=== PATIENT | male | born 1965 | race Caucasian/White ===

== ENCOUNTER 2018-01-10 14:15 | Inpatient (IN) | payer OTHER ==
--- NOTE | 2018-01-10 14:28 | CPEKG ---
Heart Rate: 69 RR Interval: 870 P-R Interval: 180 QRSD Interval: 90 QT Interval: 388 QTC Interval: 416 P [place]: 84 QRS [place]: 56 T Wave [place]: 39 EKG Severity - NORMAL ECG - EKG Impression: SINUS RHYTHM Electronically Signed By: Nicko Patterson 10-Jan-2018 16:02:02
[2018-01-10 14:43] LABS: PLATELET COUNT 289 10^3/uL (150-400)
--- NOTE | 2018-01-10 14:58 | EDPHY ---
H & P Stated Complaint: Chest and left arm pain Time Seen by Provider: 01/10/18 14:58 HPI/ROS: CHIEF COMPLAINT: Vague chest pain with left arm discomfort HISTORY OF PRESENT ILLNESS: The patient presents to the ED with a 1 day history of vague chest pain and left arm discomfort. The patient reports his symptoms began earlier today. Primary symptom was left arm pain. He reports that he had a dull ache in his bicep in forearm. He had some associated paresthesias in his left fingers. The patient did developed a few episodes of chest pain which were brief and improved with belching. The patient had similar symptoms 2 weeks ago and reportedly was seen at his primary care provider's office and had a negative troponin and unremarkable EKG. The patient is scheduled to see Dr. Montes De Oca from Cardiology on January 20. The patient reports that he does have a family history of heart disease and his father had a massive heart attack in his 60s. The patient denies any asymmetric calf pain or swelling. He denies any history of exertional chest pain or shortness of breath. REVIEW OF SYSTEMS: A comprehensive 10 point review of systems is otherwise negative aside from elements mentioned in the history of present illness. Source: Patient Exam Limitations: No limitations - Personal History Current Tetanus Diphtheria and Acellular Pertussis (TDAP): Yes Tetanus Vaccine Date: < 10 YEARS - Medical/Surgical History Hx Asthma: No Hx Chronic Respiratory Disease: No Hx Diabetes: No Hx Cardiac Disease: No Hx Renal Disease: No Hx Cirrhosis: No Hx Alcoholism: No Hx HIV/AIDS: No Hx Splenectomy or Spleen Trauma: No Other PMH: Hernia repair / shoulder repaiR, HTN - Social History Smoking Status: Never smoked - Physical Exam Exam: General Appearance: Alert, no distress Eyes: Pupils equal and round no pallor or injection ENT, Mouth: Mucous membranes moist Respiratory: There are no retractions, lungs are clear to auscultation Cardiovascular: Regular rate and rhythm Gastrointestinal: Abdomen is soft and nontender, no masses, bowel sounds normal Neurological: 5/5 strength all 4 extremities Skin: Warm and dry, no rashes Musculoskeletal: Neck is supple nontender Extremities: symmetrical, full range of motion Constitutional: Initial Vital Signs Temperature (C) 37.2 C 01/10/18 14:19 Heart Rate 82 01/10/18 14:19 Respiratory Rate 18 01/10/18 14:19 Blood Pressure 147/78 H 01/10/18 14:19 O2 Sat (%) 96 01/10/18 14:19 O2 Delivery Mode Room Air Allergies/Adverse Reactions: No Known Allergies Allergy (Verified 01/10/18 14:18) Home Medications: Medication Instructions Recorded Aspirin [Aspirin 325 mg (*)] 650 mg PO DAILY PRN 05/18/16 Lisinopril 01/10/18 Medical Decision Making - Diagnostics EKG Interpretation: EKG: Complete interpretation has been separately recorded in the [email or web address] archive. Summary impression: Sinus rhythm, rate 69 Imaging Results: Imaging Impressions Chest X-Ray 01/10/18 14:32 Impression: No acute findings in the chest. ED Course/Re-evaluation: The patient presents to the ED after an episode of vague chest discomfort which was nonexertional and improved with belching. The patient is also had some very nonspecific pain in his left arm. His symptoms have been present since 8 o 'clock this morning. Patient is currently asymptomatic in the emergency department. His EKG demonstrates no evidence of ischemia in the patient's troponin is normal. Additionally the patient's chest x-ray demonstrates no evidence of acute disease in the patient's D-dimer is negative which I feel adequately excludes pulmonary embolism. The patient is scheduled to see Cardiology for stress test in the next week. I have informed the patient that I see no objective evidence of ischemia at this point time. He does understand that we cannot fully exclude coronary artery disease. Based upon the patient's symptoms and HEART score I am comfortable with him being discharged to home and following up with Cardiology. He has been informed to return to the ED for any recurrent severe chest pain, the development of exertional symptoms or other concerns. Differential Diagnosis: Differential diagnosis considered includes acute coronary syndrome, pericarditis , esophageal spasm, myofascial strain, pulmonary embolism, aortic dissection - Data Points Laboratory Results: Laboratory Results 01/10/18 14:34 01/10/18 14:34 01/10/18 01/10/18 01/10/18 14:34 14:34 14:30 WBC 10.44 10^3/uL H 10^3/uL (3.80-9.50) RBC 5.13 10^6/uL 10^6/uL (4.40-6.38) Hgb 15.5 g/dL g/dL (13.7-17.5) Hct 42.4 % % (40.0-51.0) MCV 82.7 fL fL (81.5-99.8) MCH 30.2 pg pg (27.9-34.1) MCHC 36.6 g/dL g/dL (32.4-36.7) RDW 11.7 % % (11.5-15.2) Plt Count 289 10^3/uL 10^3/uL (150-400) MPV 9.0 fL fL (8.7-11.7) Neut % (Auto) 66.6 % % (39.3-74.2) Lymph % (Auto) 21.4 % % (15.0-45.0) [place] % (Auto) 9.2 % % (4.5-13.0) Eos % (Auto) 1.7 % % (0.6-7.6) Baso % (Auto) 0.7 % % (0.3-1.7) Nucleat RBC Rel Count 0.0 % % (0.0-0.2) Absolute Neuts (auto) 6.96 10^3/uL H 10^3/uL (1.70-6.50) Absolute Lymphs (auto) 2.23 10^3/uL 10^3/uL (1.00-3.00) Absolute Monos (auto) 0.96 10^3/uL H 10^3/uL (0.30-0.80) Absolute Eos (auto) 0.18 10^3/uL 10^3/uL (0.03-0.40) Absolute Basos (auto) 0.07 10^3/uL 10^3/uL (0.02-0.10) Absolute Nucleated RBC 0.00 10^3/uL 10^3/uL (0-0.01) Immature Gran % 0.4 % % (0.0-1.1) Immature Gran # 0.04 10^3/uL 10^3/uL (0.00-0.10) D-Dimer < 0.27 ug/mLFEU ug/mLFEU (0.00-0.50) Sodium 133 mEq/L L mEq/L (135-145) Potassium 4.0 mEq/L mEq/L (3.5-5.2) Chloride 96 mEq/L L mEq/L (97-110) Carbon Dioxide 24 mEq/l mEq/l (22-31) Anion Gap 13 mEq/L mEq/L (8-16) BUN 14 mg/dL mg/dL (7-23) Creatinine 0.9 mg/dL mg/dL (0.7-1.3) Estimated GFR > 60 Glucose 100 mg/dL mg/dL (70-100) Calcium 9.4 mg/dL mg/dL (8.5-10.4) Troponin I < 0.012 ng/mL ng/mL (0.000-0.034) Departure - Departure Disposition: Home, Routine, Self-Care Clinical Impression: Chest pain Condition: Good Instructions: Chest Pain (ED) Additional Instructions: 1. Based upon the testing done in the Emergency Department today we see no evidence of a heart attack. 2. We are unable to fully exclude coronary artery disease based upon the testing available in the Emergency Department. 3. For this reason, we would like you to be seen by cardiology for consideration of additional testing within the next 3 days. 4. Please contact the hvac/r service technician you have been referred to schedule this appointment as soon as possible. Their offices are typically open from 8:30am- 5pm M-F. 5. Please return to the Emergency Department immediately for any recurrent chest pain, difficulty breathing or other concerns. Referrals: Edinson Montes De Oca MD [Medical Doctor] - As per Instructions
[2018-01-10] MEDS ORDERED: ONDANSETRON 4 MG/2 ML VIAL IVP PRN (17:11)
[2018-01-10] MEDS ORDERED: ACETAMINOPHEN 325 MG TAB PO PRN (17:11)
[2018-01-10] MEDS ORDERED: ZOLPIDEM TARTRATE 5 MG TAB PO PRN (17:11)
--- NOTE | 2018-01-10 17:16 | PDGENHP ---
History and Physical - Chief Complaint LEFT SHOULDER PAIN - History of Present Illness A 52-year-old male with family history for coronary artery disease and a known high calcium score per recent study presented to the emergency department today with left shoulder and arm pain. the pain has been off and on for the past month. he was seen by his primary care provider a few weeks ago where they did ekg and a troponin which were reportedly unremarkable. Today the patient had a recurrent episode of left shoulder and arm pain which is described as dull ache that radiates from his shoulder down to his biceps. Pain does not occur with with exertion. It is pain happened today while he was sitting in front of the computer. He has noticed that his heart rate has been slightly lower than usual over the past few days. History Information - Allergies/Home Medication List Allergies/Adverse Reactions: No Known Allergies Allergy (Verified 01/10/18 14:18) Home Medications: Aspirin [Aspirin 325 mg (*)] 650 mg PO DAILY PRN 05/18/16 [Last Taken 05/17/16] Lisinopril 01/10/18 [Last Taken Unknown] I have personally reviewed and updated: family history, medical history, social history, surgical history - Past Medical History hypertension Additional medical history: Left AC separation repair, hernia repair - Family History Additional family history: Father had heart attack at age 63 - Social History Smoking Status: Never smoked Review of Systems Review of Systems: ROS: 10pt was reviewed & negative except for what was stated in HPI & below Physical Exam Physical Exam: Temp Pulse Resp BP Pulse Ox 37.2 C 72 16 123/78 H 96 01/10/18 14:19 01/10/18 15:45 01/10/18 15:45 01/10/18 15:45 01/10/18 15:45 Constitutional: no apparent distress, appears nourished, not in pain Eyes: PERRL, anicteric sclera, EOMI Ears, Nose, Mouth, Throat: moist mucous membranes, hearing normal, ears appear normal, no oral mucosal ulcers Cardiovascular: regular rate and rhythym, no murmur, rub, or gallop, No edema Respiratory: no respiratory distress, no rales or rhonchi, clear to auscultation Gastrointestinal: normoactive bowel sounds, soft, non-tender abdomen, no palpable masses Genitourinary: no bladder fullness, no bladder tenderness Skin: warm, normal color, no rashes or abrasions, no fluctuance, no induration, No mottled Musculoskeletal: full muscle strength, no muscle tenderness, normal joint ROM, no joint effusions Neurologic: AAOx3, CN II-XII Intact, No facial droop Psychiatric: interacting appropriately, not anxious, not encephalopathic, thought process linear Lymph, Heme, Immunologic: no cervical LAD, no supraclavicular LAD Lab Data & Imaging Review 01/10/18 14:34 01/10/18 14:34 WBC 10.44 10^3/uL (3.80-9.50) H 01/10/18 14:34 RBC 5.13 10^6/uL (4.40-6.38) 01/10/18 14:34 Hgb 15.5 g/dL (13.7-17.5) 01/10/18 14:34 Hct 42.4 % (40.0-51.0) 01/10/18 14:34 MCV 82.7 fL (81.5-99.8) 01/10/18 14:34 MCH 30.2 pg (27.9-34.1) 01/10/18 14:34 MCHC 36.6 g/dL (32.4-36.7) 01/10/18 14:34 RDW 11.7 % (11.5-15.2) 01/10/18 14:34 Plt Count 289 10^3/uL (150-400) 01/10/18 14:34 MPV 9.0 fL (8.7-11.7) 01/10/18 14:34 Neut % (Auto) 66.6 % (39.3-74.2) 01/10/18 14:34 Lymph % (Auto) 21.4 % (15.0-45.0) 01/10/18 14:34 [place] % (Auto) 9.2 % (4.5-13.0) 01/10/18 14:34 Eos % (Auto) 1.7 % (0.6-7.6) 01/10/18 14:34 Baso % (Auto) 0.7 % (0.3-1.7) 01/10/18 14:34 Nucleat RBC Rel Count 0.0 % (0.0-0.2) 01/10/18 14:34 Absolute Neuts (auto) 6.96 10^3/uL (1.70-6.50) H 01/10/18 14:34 Absolute Lymphs (auto) 2.23 10^3/uL (1.00-3.00) 01/10/18 14:34 Absolute Monos (auto) 0.96 10^3/uL (0.30-0.80) H 01/10/18 14:34 Absolute Eos (auto) 0.18 10^3/uL (0.03-0.40) 01/10/18 14:34 Absolute Basos (auto) 0.07 10^3/uL (0.02-0.10) 01/10/18 14:34 Absolute Nucleated RBC 0.00 10^3/uL (0-0.01) 01/10/18 14:34 Immature Gran % 0.4 % (0.0-1.1) 01/10/18 14:34 Immature Gran # 0.04 10^3/uL (0.00-0.10) 01/10/18 14:34 D-Dimer < 0.27 ug/mLFEU (0.00-0.50) 01/10/18 14:30 Sodium 133 mEq/L (135-145) L 01/10/18 14:34 Potassium 4.0 mEq/L (3.5-5.2) 01/10/18 14:34 Chloride 96 mEq/L (97-110) L 01/10/18 14:34 Carbon Dioxide 24 mEq/l (22-31) 01/10/18 14:34 Anion Gap 13 mEq/L (8-16) 01/10/18 14:34 BUN 14 mg/dL (7-23) 01/10/18 14:34 Creatinine 0.9 mg/dL (0.7-1.3) 01/10/18 14:34 Estimated GFR > 60 01/10/18 14:34 Glucose 100 mg/dL (70-100) 01/10/18 14:34 Calcium 9.4 mg/dL (8.5-10.4) 01/10/18 14:34 Troponin I < 0.012 ng/mL (0.000-0.034) 01/10/18 14:34 Visualized and Interpreted Chest x-ray results: Yes Chest X-Ray results: normal Visualized and Interpreted EKG results: Yes EKG Interpretation: Positive for: normal sinsus rhythm (69 beats per minute) Assessment & Plan Assessment: This is a 52-year-old male with a high calcium score and family history for myocardial infarction presenting with: # left shoulder and arm pain which is most likely musculoskeletal in etiology versus less likely ACS -I discussed the case with the patient's cyber legal advisor Dr. Edinson Montes De Oca who given his history has requested the patient be observed in the hospital to rule out acute coronary syndrome. Will cycle his troponin and proceed with at treadmill stress test with nuclear imaging in the morning. # controlled hypertension -continue home dose of lisinopril
[2018-01-10] MEDS ORDERED: ASPIRIN 325 MG TAB PO PRN (17:51)
[2018-01-10] MEDS: LISINOPRIL 10 MG TAB PO SCH (19:42)
[2018-01-10] MEDS ORDERED: ASPIRIN 325 MG TAB PO SCH (20:15)
[2018-01-10] MEDS ORDERED: ASPIRIN 81 MG CHEWABLE TAB PO SCH (20:15)
--- NOTE | 2018-01-11 09:17 | CPEKG ---
Heart Rate: 68 RR Interval: 882 P-R Interval: 128 QRSD Interval: 80 QT Interval: 436 QTC Interval: 464 P [place]: 74 QRS [place]: 65 T Wave [place]: 65 EKG Severity - NORMAL ECG - EKG Impression: SINUS RHYTHM Electronically Signed By: Sergio Hall 12-Jan-2018 07:52:12
--- NOTE | 2018-01-11 12:07 | ASMTCMCOM ---
CM Note CM Note Notes: 01/11/2018 Case Management Note Discussed pt during rounds this morning. Pt admitted for chest pain and subsequent work up. There are no anticipated case management d/c needs d/t pt age, family support and activity levels prior to admission. There are no PT or OT evals ordered at this time. Case Management d/c poc: independent with follow up as directed. Case Management available if needs change. Date Signed: 01/11/2018 12:06 PM Electronically Signed By:Elham Marquez RN
--- NOTE | 2018-01-11 12:27 | PDCARST ---
CAR Stress Test Results Type of Stress Test: Nuclear TM stress test Indication: cp/elevated calcium score Description of Procedure: After informed consent was obtained, pt was exercised according to Jose M Protocol. Monitoring was performed with standard stress electric relay tester electrode placement. Vital signs were monitored according to protocol throughout the procedure. STRESS EKG AND HEMODYNAMIC DATA. Exercise time: 7: 30 min. This is equivalent to: 8.6 METS. Resting heart rate: 81 bpm. Resting blood pressure: 122/68 mmHg. Resting O2 saturation: 98%. Peak heart rate: 172 bpm. This is 103% of age predicted maximum heart rate response. Peak blood pressure: 178/60 mmHg. Exercise O2: 90%. Arrhythmias: PVCs with exertion. Reason for termination: The test was stopped due to maximal effort. Symptoms: The patient experienced no typical symptoms of angina during stress or recovery. STRESS TEST ANALYSIS. Baseline ECG: NSR. Stress ECG: Sinus tach. exercise induced ischemic ECG changes: No. Rhythm:occasional PVCs noted during exercise and recovery. Blood pressure: normal blood pressure response to exercise. Exercise tolerance: The patient has average exercise tolerance adjusted for age and gender. Symptoms: Chest tightness at peak exertion/ described more as dyspnea. Impression: Stress ECG is negative for ischemia. The Carreon Treadmill Score is +7 , consistent with low cardiovascular risk (<1% annual mortality). Conclusion: Await nuclear images.
[2018-01-11] MEDS ORDERED: LIDOCAINE 1% 300 MG/30 ML SDV ONE (13:23)
[2018-01-11] MEDS ORDERED: fentaNYL 100 MCG/2 ML INJ ONE (13:23)
[2018-01-11] MEDS ORDERED: IOPAMIDOL (ISOVUE-370) 150 ML BTL IV ONE (13:24)
[2018-01-11] MEDS ORDERED: MIDAZOLAM 2 MG/2 ML VIAL ONE (13:24)
[2018-01-11] MEDS ORDERED: DIAZEPAM 5 MG TAB PO ONE (13:31)
[2018-01-11] MEDS ORDERED: FAMOTIDINE 20 MG TAB PO ONE (13:31)
[2018-01-11] MEDS ORDERED: diphenhydrAMINE 25 MG CAP PO ONE (13:31)
--- NOTE | 2018-01-11 13:32 | PDPROPOC ---
Sedation Plan of Care Sedation Plan of Care: mental status noted, patient educated of risks, benefits , alternatives, patient can tolerate sedation ASA Classification: ASA 2 Planned drugs: fentanyl, midazolam Mallampati Score: Class 2 Mallampati Reference Image: Patient passed 3-3-2 rule?: Yes
--- NOTE | 2018-01-11 13:32 | PDHPUP ---
History & Physical Update H&P update statement: This history and physical update is based on an assessment of the patient which was completed after admission or registration (within 24 hours), but prior to the surgery/procedure. H&P update: H&P reviewed & patient examined, no change in patient's condition since H&P completed
[2018-01-11] MEDS ORDERED: TEMAZEPAM 15 MG CAP PO PRN (13:58)
[2018-01-11] MEDS ORDERED: NITROGLYCERIN 0.4 MG BTL SL PRN (13:58)
--- NOTE | 2018-01-11 14:57 | GCON ---
[f rep st] CONSULTATION CARDIOLOGY CONSULTATION DATE OF CONSULTATION: 01/11/2018 REFERRING PHYSICIAN: Gita Jacobsen MD CHIEF COMPLAINT: We are asked by Dr. Taty Jacobsen of Hospital Medicine to evaluate the patient for h is chest pain episode. HISTORY OF PRESENT ILLNESS: The patient is a 52-year-old male, with a history of hypertension and re cent elevated coronary artery calcium score, who presented yesterday after describing chest discomfor t. He describes a couple of different types of symptoms. Over the past 1-1/2 months, he has noted l eft arm discomfort that progresses through his arm without any predictability. The discomfort will o ccur either in his left triceps or toward his elbow or below his elbow. He describes this as a very mild discomfort at a 2/10, and he has noted a total of 4 incidents of this. Additionally, since star ting his antihypertensives, he has been more and more constipated. At first, he was on amlodipine, a nd then he was changed to lisinopril, but both of these medications have caused symptoms of constipat ion. Additionally, he has noted this chest discomfort that is migratory in his left chest. He will note a half-dollar size area of discomfort that is more like a sharp discomfort relieved with burping . He admits he has not been exercising, mainly due to feeling poorly with his antihypertensives. Wi th amlodipine, he had severe edema that made it difficult for him to move his legs. More recently, w ith the change to lisinopril, he has been feeling okay but still not exercising. He is able to ambul ate up the stairs of his office and has not felt chest discomfort in any way. REVIEW OF SYSTEMS: As per HPI. A complete 10-point review of systems was obtained and is negative, except for what is dictated. PAST SURGICAL HISTORY: Left AC separation repair 16 years ago and hernia repair. PAST MEDICAL HISTORY: 1. Hypertension. 2. Elevated calcium score. 3. Rib fractures over the past 2-1/2 years. FAMILY HISTORY: His father had an DC at age 63. His sister has a pacemaker. SOCIAL HISTORY: Patient is a nonsmoker. He reports 1-2 beers at most on some days. PHYSICAL EXAM: VITAL SIGNS: BP is 116/68, heart rate of 90, respirations 18, O2 saturation 95% on r oom air, temp of 98.3 degrees Fahrenheit. GENERAL: He is a very pleasant male in no apparent distre ss. HEENT: Normocephalic, atraumatic. Eyes are without scleral icterus. HEART: Regular rate and rhythm. LUNGS: Clear to auscultation. ABDOMEN: Nontender, with normoactive bowel sounds. SKIN: Warm and dry. PSYCH: Normal mood and affect for given situation. NEURO: No focal deficits detecte d. Telemetry reviewed reveals sinus rhythm. LABORATORY DATA: CBC with WBC 10.44, hemoglobin 15.5, hematocrit 42.4, platelet count of 289. BMP w ith sodium 133, potassium 4, chloride 96, CO2 of 24, BUN 14, creatinine 0.9, glucose 100. Troponins negative x3. Triglycerides 100, total cholesterol 191, LDL cholesterol of 130, HDL cholesterol 41. D-dimer less than 0.27. A 12-lead ECG, personally interpreted, demonstrates sinus rhythm. Stress te sting and nuclear imaging reviewed. These reports are dictated separately. The nuclear stress test showed average exercise tolerance, with mild ischemic changes to the mid distal anterior wall, possib le ischemia to the inferior wall, obscured by diaphragmatic attenuation. EF is normal. I have spoke n with Doctors Maddy Jacobsen, Falguni and Catrachita regarding patient's care. IMPRESSION AND PLAN: The patient is a 52-year-old male admitted with somewhat atypical chest discomf ort. 1. Chest discomfort, with an abnormal myocardial perfusion imaging. Given patient's multiple risk f actors, we reviewed options, and patient is agreeable to left heart catheterization for further diagn ostic evaluation. Risks, benefits, and alternatives have been reviewed with patient. 2. Atherosclerosis. He has a very elevated calcium score. We discussed medical management to inclu de statin therapy. His LDL is measured at 130. We will begin atorvastatin in this admission. 3. Hypertension. Blood pressure appears well controlled at this point. 4. Hyponatremia, mild, and has been corrected. /[id number]/MODL
--- NOTE | 2018-01-11 14:58 | HOSPPROG ---
Hospitalist Progress Note Assessment/Plan: # Acute left arm/chest pain - troponins/EKG negative overnight - TELE ( personally reviewed and interpreted) sinus rythmn Nuclear stress test positive today for ischemia- oxygen saturations 95% on RA -checking lipids - NPO after MN for cath in am - cont telemetry # HTN - blood pressures well controlled - cont low dose lisinopril # proph - pt ambulating # diet- cardiac then NPO after MN # dispo- > 2MN as requires ongoing diagnostic work up Subjective: denies cp Objective: Vital Signs Temp Pulse Resp BP Pulse Ox 36.8 C 90 18 116/68 95 01/11/18 12:00 01/11/18 12:00 01/11/18 12:00 01/11/18 12:00 01/11/18 12:00 Laboratory Results 01/11/18 06:30 01/10/18 01/11/18 01/12/18 05:59 05:59 05:59 Intake Total 350 Balance 350 - Physical Exam Constitutional: no apparent distress Eyes: anicteric sclera Ears, Nose, Mouth, Throat: moist mucous membranes Cardiovascular: regular rate and rhythym Respiratory: no respiratory distress Gastrointestinal: normoactive bowel sounds Genitourinary: no bladder fullness Skin: warm Musculoskeletal: No asymmetric calves Neurologic: AAOx3 Psychiatric: interacting appropriately Lymph, Heme, Immunologic: no cervical LAD ICD10 Worksheet Patient Problems: Problems Problem Status Onset Chest pain Acute Hypertension Acute Hyponatremia Acute Paresthesia Acute
--- NOTE | 2018-01-11 15:56 | PDMN ---
Medical Necessity Medical necessity: MCG M40 angina- ongoing CP with + stress test req cardiac cath for further diagnostic workup of CP > 2 midnights status changed @ 2621
[2018-01-11] MEDS: LISINOPRIL 10 MG TAB PO SCH (19:58)
[2018-01-11] MEDS: ATORVASTATIN CALCIUM 40 MG TAB PO SCH ×2 (20:00→20:06)
[2018-01-12 04:31] LABS: PLATELET COUNT 256 10^3/uL (150-400)
[2018-01-12 04:35] LABS: INR 1.05 (0.83-1.16); PROTIME(PATIENT) 13.9 SEC (12.0-15.0)
[2018-01-12] MEDS ORDERED: FAMOTIDINE 20 MG TAB PO ONE (06:00)
[2018-01-12] MEDS ORDERED: DIAZEPAM 5 MG TAB PO ONE (06:00)
[2018-01-12] MEDS ORDERED: diphenhydrAMINE 25 MG CAP PO ONE (06:00)
[2018-01-12] MEDS: ATORVASTATIN CALCIUM 40 MG TAB PO SCH (07:51)
[2018-01-12] MEDS ORDERED: methylPREDNISolone SOD SUCC 125 MG/2 ML VIAL ONE (08:47)
[2018-01-12] MEDS ORDERED: ASPIRIN 81 MG CHEWABLE TAB PO SCH ×2 (09:00→14:03)
[2018-01-12] MEDS ORDERED: methylPREDNISolone SOD SUCC 125 MG/2 ML VIAL IVP ONE (09:00)
[2018-01-12] MEDS ORDERED: LIDOCAINE 1% 300 MG/30 ML SDV ONE (09:08)
[2018-01-12] MEDS ORDERED: MIDAZOLAM 2 MG/2 ML VIAL ONE ×2 (09:08)
[2018-01-12] MEDS ORDERED: fentaNYL 100 MCG/2 ML INJ ONE (09:08)
[2018-01-12] MEDS ORDERED: IOPAMIDOL (ISOVUE-370) 150 ML BTL IV ONE (09:09)
[2018-01-12] MEDS ORDERED: VERAPAMIL 5 MG/2 ML VIAL ONE (09:09)
[2018-01-12] MEDS ORDERED: HEPARIN 10,000 UNIT/10 ML MDV (1,000 UNIT/ML) ONE (09:09)
--- NOTE | 2018-01-12 09:44 | PDHPUP ---
History & Physical Update H&P update statement: This history and physical update is based on an assessment of the patient which was completed after admission or registration (within 24 hours), but prior to the surgery/procedure. H&P update: H&P reviewed & patient examined, no change in patient's condition since H&P completed H&P changes: patient with high risk stress test needs cardiac cath 1100 calcium score...
--- NOTE | 2018-01-12 09:44 | PDPROPOC ---
Sedation Plan of Care Sedation Plan of Care: vital signs stable, mental status noted, patient educated of risks, benefits, alternatives, patient can tolerate sedation ASA Classification: ASA 3 Planned drugs: fentanyl, midazolam, other (etomidate if necessary) Mallampati Score: Class 3 Mallampati Reference Image: Patient passed 3-3-2 rule?: Yes
--- NOTE | 2018-01-12 10:08 | PDDXCAT ---
Diagnostic Cath Note - . Date: 01/12/18 Fresh Work Wrapper Layer: Falguni Indication: CCC Class III and IV angina on medical treatment, High-risk criteria on noninvasive testing (choose option below) High-risk criteria on non-invasive testing: high-risk treadmill score (score<=- 11) - Procedure Access: right groin Procedure: left heart catheterization, coronary angiography, left ventriculogram - Materials Left Heart Cath size: 6F Left Heart Cath materials: standard multipack (JL4, JR4, pigtail) - Findings-Left Heart Catheterization LM: The LM is 6 mm in size. It bifurcates into an LAD and circumflex system. MANNIE III flow. LAD: The LAD is 3.5 mm in size. There is evidence of calcification on cineflouroscopy consistent with undelying atherosclerosis. In the OMANI caudal projection there is 30-40% obstruction at the level of the primary diagonal takeoff. No evidence of flow limiting obstruction in multiple views. MANNIE III flow is present. LCX: The circumflex is 2.75 mm in size. MANNIE III flow. EDP: 15 mmHg. LVEF: The EF is low normal at 50 to 55% Wall motion: On the LV gram there is low normal LV systolic function. The EF is 50%. There are no resting segmental wall motion abnormalities. The visualized portion of the thoracic aortic valce reveals three sinuses of valsalva most consistent with a trileaflet valve. There is no gradient on pullback across the aortic valve. There is no evidence of arturo dissection or aneurysm formation. No significant mitral regurgitation is noted. Complications: NONE. Estimated blood loss: <50ml Closure method: Angioseal Assessment: The patient has eagle vessel coronary disease with no evidence of flow limiting obstruction, dissection, or thrombus. MANNIE III flow throughout. Plan: The patient should be treated to achieve a non-HDL cholesterol of less than 100 mg/dL with a statin based regimen. Antiplatelet therapy with Aspirin is also recommended specifically a dose of 162 mg per day. His blood pressure also needs to be controlled for a goal systolic pressure of less than 130 mmHg preferably with an NIR or ARB based regimen. Intervention: NONE. Patient Problems: Problems Problem Status Onset Chest pain Acute Hypertension Acute Hyponatremia Acute Paresthesia Acute
[2018-01-12] MEDS ORDERED: ONDANSETRON 4 MG/2 ML VIAL ONE (10:12)
[2018-01-12] MEDS ORDERED: ATROPINE SULFATE 1 MG/10 ML SYR IVP PRN (10:42)
[2018-01-12 12:57] VITALS: BP 114/69
--- NOTE | 2018-01-12 17:04 | GDS ---
[f rep st] DISCHARGE SUMMARY DISCHARGE DIAGNOSES: Include: 1. Chest pain. 2. Nonocclusive coronary artery disease. 3. Hyperlipidemia. 4. Hypertension. HISTORY OF PRESENT ILLNESS: This is a 52-year-old male who complains of atypical chest pain. For de tails of initial presentation, please see the History and Physical dated 01/10/2018. CONSULTATIVE SERVICES: Include Cardiology. PROCEDURES: 01/11/2018: Patient underwent nuclear stress imaging which was positive for inducible i schemia. In 2018, patient underwent cardiac catheterization that showed nonocclusive [place] coronary artery disease. HOSPITAL COURSE BY ISSUE: 1. Chest pain. Patient was admitted, ruled out with serial troponins, EKGs. Initial cardiac stress testing was positive for inducible ischemia. Patient was taken to the cardiac crime lab technician and found to have mild nonocclusive coronary artery disease. Patient will have his medications management titrat ed to optimize the control with the addition and then increase in the outpatient aspirin dosing to 16 2 mg daily. Patient will continue on his home dosing of lisinopril. Patient will follow in the outp atient setting with Dr. Montes De Oca for ongoing management of his coronary artery disease. 2. Hypertension. Patient's blood pressures were well controlled on his low-dose NIR inhibitor. He will continue to follow with Dr. Montes De Oca for long-term management. MEDICATIONS AT THE TIME OF TRANSFER: Please reference the med rec printed on 01/12/2018. FOLLOWUP APPOINTMENTS: Include Dr. Montes De Oca in the next 2-3 weeks for his first post disposition follo wup, BP check, and followup of cardiac catheterization. PENDING STUDIES: At the time of this dictation, none. I spent greater than 30 minutes in the planning and coordination of this discharge. /[id number]/MODL
== END 2018-01-12 15:54 | disposition home or self-care (01) | DRG 287 ==
LOC: UNDOADMOB 16:36 → OBSVTOIN 16:36 → F2W 17:48
PROVIDERS: ADMIT Family Medicine; ATTEND Family Medicine
PROC: B2151ZZ Fluoroscopy of Left Heart using Low Osmolar Contrast (ICD-10-PCS; principal; 2018-01-12)
PROC: 4A023N7 Measurement of Cardiac Sampling and Pressure, Left Heart, Percutaneous Approach (ICD-10-PCS; principal; 2018-01-12)
PROC: B2111ZZ Fluoroscopy of Multiple Coronary Arteries using Low Osmolar Contrast (ICD-10-PCS; principal; 2018-01-12)
DX: I25.10 Atherosclerotic heart disease of native coronary artery without angina pectoris (principal); E78.5 Hyperlipidemia, unspecified; I10 Essential (primary) hypertension
CPT/HCPCS: 82947-QW; A9500; C1760; G0378; J1200; J1644; J2250; J2405; J2930; J3010; Q9967

== ENCOUNTER 2018-01-16 01:03 | Emergency (ER) | payer OTHER ==
--- NOTE | 2018-01-16 03:18 | CPEKG ---
Heart Rate: 59 RR Interval: 1017 P-R Interval: 244 QRSD Interval: 84 QT Interval: 428 QTC Interval: 424 P Loami: 58 QRS Loami: 5 T Wave Loami: 26 EKG Severity - ABNORMAL ECG - EKG Impression: SINUS RHYTHM EKG Impression: FIRST DEGREE AV BLOCK Electronically Signed By: Maryan Hagen 16-Jan-2018 05:29:05
--- NOTE | 2018-01-16 03:51 | EDPHY ---
H & P Stated Complaint: "I WOKE UP AROUND MN AND FELT WEIRD" BP 130'S SYS Time Seen by Provider: 01/16/18 02:51 HPI/ROS: HPI The patient presents with irregular heartbeat as recorded by his home monitor. He was sleeping on the couch in an unusual curled up position and when he awoke he noticed that his right leg felt numb and heavy. He thinks this was because he was sleeping on it. After a few minutes that numbness and tingling improved and completely resolved. He checked his blood pressure which was in the 130s systolic and his heart rate was in the 70s his monitor read it as irregular on 2 readings. This was concerning to him, so he comes in to the emergency department. He does not have any chest pain, shortness of breath, nausea or vomiting. He was recently admitted to the hospital and had cardiac catheterization performed. He is to follow up with Dr. Montes De Oca later this week. REVIEW OF SYSTEMS Constitutional: No fever, no chills. Eyes: No discharge. ENT: No sore throat. Cardiovascular: No chest pain, no palpitations. Respiratory: No cough, no shortness of breath. Gastrointestinal: No abdominal pain, no vomiting. Genitourinary: No hematuria. Musculoskeletal: No back pain. Skin: No rashes. Neurological: No headache. PMHx: Hypertension, hypercholesterolemia Soc Hx: Housed, nonsmoker PHYSICAL General Appearance: Alert, no distress Eyes: Pupils equal and round no pallor or injection ENT, Mouth: Mucous membranes moist Respiratory: There are no retractions, lungs are clear to auscultation Cardiovascular: Regular rate and rhythm Gastrointestinal: Abdomen is soft and non-tender, no masses, bowel sounds normal Neurological: A&O, moves all extremities Skin: Warm and dry, no rashes Musculoskeletal: Neck is supple non tender Extremities: symmetrical, full range of motion Psychiatric: Patient is oriented X 3, there is no agitation Source: Patient Exam Limitations: No limitations - Personal History Current Tetanus Diphtheria and Acellular Pertussis (TDAP): Yes Tetanus Vaccine Date: < 10 YEARS - Medical/Surgical History Hx Asthma: No Hx Chronic Respiratory Disease: No Hx Diabetes: No Hx Cardiac Disease: No Hx Renal Disease: No Hx Cirrhosis: No Hx Alcoholism: No Hx HIV/AIDS: No Hx Splenectomy or Spleen Trauma: No Other PMH: Hernia repair / shoulder repaiR, HTN, ANGIOGRAM, ELEV CHOL - Social History Smoking Status: Never smoked Constitutional: Initial Vital Signs Temperature (C) 36.8 C 01/16/18 01:15 Heart Rate 70 01/16/18 01:15 Respiratory Rate 16 01/16/18 01:15 Blood Pressure 143/73 H 01/16/18 01:15 O2 Sat (%) 96 01/16/18 01:15 O2 Delivery Mode Room Air Allergies/Adverse Reactions: Iodinated Contrast- Oral and IV Dye Allergy (Verified 01/11/18 14:14) Other-Enter Comments Home Medications: Medication Instructions Recorded Aspirin [Aspirin 325 mg (*)] 650 mg PO DAILY PRN 05/18/16 Lisinopril [Zestril 10 mg (*)] 5 mg PO 1900 01/10/18 Aspirin [Aspirin 81mg (*)] 162 mg PO DAILY tab.chew 01/12/18 Atorvastatin Calcium [Lipitor 40 40 mg PO DAILY #30 tab 01/12/18 mg (*)] Medical Decision Making - Diagnostics EKG Interpretation: EKG: Complete interpretation has been separately recorded in the [employer] archive. Summary impression: Normal sinus rhythm, no ST segment changes, no a arrhythmia Differential Diagnosis: This is a 52-year-old man who presents after feeling unwell upon awakening after sleeping on his couch for several hours. He was sleeping in an odd position and initially experienced some tingling in his left foot which is now completely resolved after about 30 min. He was able to walk without difficulty. He checked his blood pressure and heart rate at home and his blood pressure cuff said that his heart rate was irregular onto readings. He was concerned about this so comes into the emergency department. He denies any palpitations. On exam, he is well-appearing, he has normal vital signs, he has no neurologic deficits. EKG was performed and showed a normal sinus rhythm. The cause of his home monitor reading is unclear. He could of been in a regular rhythm code is difficult to say for sure. I have explained to him there are some other more accurate cardiac monitors he may want to consider. He does have follow-up with Dr. Montes De Oca his television operator this week and I have asked him to discuss this with him. He is currently asymptomatic and feels well enough to go home. Departure - Departure Disposition: Home, Routine, Self-Care Clinical Impression: Irregular heart beat Condition: Good Instructions: Heart Palpitations (ED) Additional Instructions: Please follow-up with your television operator as planned. You should return to the emergency department if your worse in any way. Referrals: Ra Mark DO [Primary Care Provider] - As per Instructions Edinson Montes De Oca MD [Medical Doctor] - As per Instructions
[2018-01-16 03:53] VITALS: BP 134/76
== END 2018-01-16 03:53 | disposition home or self-care (01) ==
DX: I49.9 Cardiac arrhythmia, unspecified (principal); I10 Essential (primary) hypertension; Z79.82 Long term (current) use of aspirin

== ENCOUNTER → 2019-01-03 | Outpatient (CLI) | payer OTHER | LOC: CLAB 15:43 | PROVIDERS: ATTEND Internal Medicine | DX: K59.00 Constipation, unspecified (principal) | CPT/HCPCS: 74019-PO ==

== ENCOUNTER 2019-02-07 15:50 | Emergency (ER) | payer OTHER | END 2019-02-07 17:10 | disposition home or self-care (01) ==